=== PATIENT | male | born 1980 | race Caucasian/White ===

== ENCOUNTER 2017-06-02 00:56 | Inpatient (IN) | payer SELFPAY ==
[2017-06-01 04:55] VITALS: O2SAT 100
[~2017-06-02] VITALS: Ht 182.9 cm; Wt 104.0 kg
[2017-06-02] VITALS (16 sets, daily range): BP systolic 102–137; BP diastolic 64–76; PULSE 67–79; RESP 12–21; TEMP 98.4–99.7; O2SAT 90–100
[2017-06-02] MEDS ORDERED: IOHEXOL 350 MG/ML 10 ML VIAL (for RAD DIAG) IVCONTRAST ONE (01:15)
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
[2017-06-02] MEDS ORDERED: HEPARIN SODIUM - SQ 10,000 UNITS/ML VIAL ONE (01:24)
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
[2017-06-02 01:27] LABS: AUTOMATED NEUTROPHIL # 2.4 TH/MM3 (1.8-7.7); BASOPHIL % 0.3 % (0.0-2.0); EOSINOPHIL # 0.1 TH/MM3 (0-0.4); EOSINOPHIL % 1.2 % (0.0-4.0); HEMATOCRIT 42.3 % (39.0-51.0); LYMPH % 64.1 % (9.0-44.0); LYMPHOCYTE # 6.3 TH/MM3 (1.0-4.8); MEAN CELL VOLUME 89.3 FL (80.0-100.0); MEAN CORPUSCULAR HEMOGLOBIN 31.6 PG (27.0-34.0); MEAN CORPUSCULAR HGB CONC 35.4 % (32.0-36.0); MEAN PLATELET VOLUME 8.5 FL (7.0-11.0); MONO % 9.9 % (0.0-8.0); NEUT % 24.5 % (16.0-70.0); PLATELET COUNT 182 TH/MM3 (150-450); RED BLOOD COUNT 4.74 MIL/MM3 (4.50-5.90); RED CELL DISTRIBUTION WIDTH 14.2 % (11.6-17.2); WHITE BLOOD COUNT 9.7 TH/MM3 (4.0-11.0)
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
[2017-06-02] MEDS ORDERED: metroNIDAZOLE 500 MG INJ 100 ML IV ONE (01:32)
[2017-06-02 01:37] LABS: INTERNATIONAL NORMALIZED RATIO 1.1 RATIO; PROTHROMBIN TIME - PATIENT 10.7 SEC (9.8-11.6)
[2017-06-02 02:25] LABS: LYMPHOCYTES 68 % (9-44); MONOCYTES 6 % (0-8); NEUTROPHIL # MANUAL DIFF 2.4 TH/MM3 (1.8-7.7); POLYS (SEG NEUTROPHILS) 25 % (16-70)
[2017-06-02] MEDS ORDERED: DEXMEDETOMIDINE HCL 200 MCG/2 ML VIAL ONE (03:44)
[2017-06-02] MEDS ORDERED: MISCELLANEOUS NURSING INFORMATION XX SCH ×2 (03:45→05:45)
[2017-06-02] MEDS ORDERED: PROPOFOL 1000 MG/100 ML INJ 100 ML IV PRN ×2 (03:45→08:00)
[2017-06-02] MEDS ORDERED: CHLORHEXIDINE GLUCONATE 2 % 1 PACK (2 CLOTHS) TOP PRN ×2 (03:45→05:45)
[2017-06-02] MEDS ORDERED: ONDANSETRON HCL 4 MG/2 ML VIAL IV PUSH PRN (03:45)
[2017-06-02] MEDS ORDERED: NEED HT & WT SCH (03:45)
[2017-06-02] MEDS ORDERED: fentaNYL DRIP 250 ML IV PRN ×2 (03:45→08:00)
[2017-06-02] MEDS ORDERED: PROPOFOL 1000 MG/100 ML INJ 100 ML ONE ×2 (03:45→05:50)
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
[2017-06-02] MEDS: SODIUM CHLOR 0.9% 1000 ML INJ 1,000 ML IV SCH ×3 (03:50→20:58)
[2017-06-02] MEDS ORDERED: CHLORHEXIDINE GLUCONATE 2 % 1 PACK (2 CLOTHS) TOP SCH (04:00)
[2017-06-02] MEDS: ceFAZolin 2 GM PREMIX 50 ML IV SCH ×4 (04:00→20:57)
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
[2017-06-02] MEDS ORDERED: *morphine SULFATE 8 MG/ML PERIprocedure ONLY ONE (04:11)
[2017-06-02] MEDS ORDERED: METOPROLOL TARTRATE 5 MG/5 ML VIAL ONE (04:12)
[2017-06-02] MEDS ORDERED: HYDROmorphone HCL PF 2 MG/ML VIAL IV SCH (04:30)
[2017-06-02] MEDS ORDERED: DO NOT ADM ANY ANTICOAGULANT DRUGS PRN (04:45)
[2017-06-02 05:14] LABS: AUTOMATED NEUTROPHIL # 4.9 TH/MM3 (1.8-7.7); BASOPHIL % 0.3 % (0.0-2.0); EOSINOPHIL % 0.6 % (0.0-4.0); HEMATOCRIT 43.4 % (39.0-51.0); HEMOGLOBIN 14.8 GM/DL (13.0-17.0); LYMPH % 14.6 % (9.0-44.0); LYMPHOCYTE # 0.9 TH/MM3 (1.0-4.8); MEAN CELL VOLUME 90.7 FL (80.0-100.0); MEAN CORPUSCULAR HGB CONC 34.1 % (32.0-36.0); MONO % 8.4 % (0.0-8.0); MONOCYTE # 0.5 TH/MM3 (0-0.9); NEUT % 76.1 % (16.0-70.0); PLATELET COUNT 188 TH/MM3 (150-450); RED BLOOD COUNT 4.79 MIL/MM3 (4.50-5.90); RED CELL DISTRIBUTION WIDTH 14.6 % (11.6-17.2); WHITE BLOOD COUNT 6.4 TH/MM3 (4.0-11.0)
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
[2017-06-02 05:35] LABS: BICARBONATE 25.9 MEQ/L (21.0-32.0); CALCIUM 7.3 MG/DL (8.5-10.1); CREATININE 0.84 MG/DL (0.60-1.30)
--- NOTE | 2017-06-02 05:43 | RADRPT ---
EXAM DATE/TIME: 06/02/2017 05:21 [place] COMPARISON: CHEST SINGLE AP, June 02, 2017, 0:58. CT ABDOMEN & PELVIS W CONTRAST, June 02, 2017, 1:09. INDICATIONS : Short of breath. MEDICAL HISTORY : None. SURGICAL HISTORY : None. ENCOUNTER: Initial ACUITY: 1 day PAIN SCORE: 0/10 LOCATION: Bilateral chest FINDINGS: No infiltrate, effusion or pneumothorax. Heart size within normal limits. Endotracheal tube tip is approximately 5 cm above the jamaal. Nasogastric tube with tip in the stomac h. CONCLUSION: Lungs remain clear. Appropriate position of the endotracheal tube and nasogastric tube. Ramses De Los Santos MD on June 02, 2017 at 5:40 Board Certified Radiologist. This report was verified electronically.
[2017-06-02] MEDS ORDERED: ACETAMINOPHEN 1000 MG/100 ML 100 ML IV PRN ×2 (05:45→18:00)
[2017-06-02] MEDS ORDERED: SODIUM CHLORIDE 0.9% FLUSH 10 ML FLUSH IV FLUSH PRN (05:45)
[2017-06-02] MEDS ORDERED: RESP: ALBUTEROL 2.5 MG/3 ML NEB (PRN) INH (05:45)
[2017-06-02 05:51] LABS: CALCIUM-PROTEIN CORRECTED 7.8 MG/DL (8.5-10.1); TOTAL PROTEIN 6.1 GM/DL (6.4-8.2)
[2017-06-02] MEDS: ARTIFICIAL TEARS OPTH SOLN 15 ML BTL EACH EYE SCH ×2 (07:53→11:23)
[2017-06-02] MEDS: SODIUM CHLORIDE 0.9% FLUSH 10 ML FLUSH IV FLUSH SCH ×2 (07:53→20:58)
[2017-06-02] MEDS ORDERED: CHLORHEXIDINE 0.12% (ORAL KIT) 15 ML CUP MT SCH (08:00)
[2017-06-02] MEDS ORDERED: FAMOTIDINE 20 MG/2 ML VIAL IV PUSH SCH (09:00)
[2017-06-02] MEDS ORDERED: HYDROmorphone HCL PCA 6 MG/30 ML IV SCH (10:45)
[2017-06-02] MEDS ORDERED: NALOXONE HCL 0.4 MG/ML AMP IV PUSH PRN (10:45)
[2017-06-02] MEDS ORDERED: ePHEDrine/NS 25 MG/5 ML SYRINGE IV ONE (12:00)
[2017-06-02] MEDS ORDERED: NORMOSOL R INJ 2,000 ML IV ONE (12:00)
[2017-06-02] MEDS ORDERED: LACTATED RINGER'S 1000 ML INJ 1,000 ML IV ONE (12:00)
[2017-06-02] MEDS ORDERED: SUCCINYLCHOLINE CHLORIDE 200 MG/10 ML VIAL IV ONE (12:00)
[2017-06-02] MEDS ORDERED: ROCURONIUM INJ 50 MG/5 ML SYRINGE IV PUSH ONE (12:00)
[2017-06-02] MEDS ORDERED: VECURONIUM BROMIDE 20 MG VIAL IV ONE (12:00)
[2017-06-02] MEDS ORDERED: PROPOFOL 200 MG/20 ML AMP IV ONE (12:00)
[2017-06-02] MEDS: PCA - TOTAL MG DILAUDID DELIVERED PER SHIFT OTHER SCH ×2 (14:00→22:00)
[2017-06-02] MEDS: HYDROmorphone HCL PF 2 MG/ML VIAL IV PUSH PRN ×2 (17:55→20:58)
[2017-06-02] MEDS: HYDROmorphone HCL PCA 6 MG/30 ML IV SCH ×2 (18:18→22:20)
[2017-06-03] VITALS (8 sets, daily range): BP systolic 123–144; BP diastolic 67–91; PULSE 72–88; RESP 18–22; TEMP 97.2–98; O2SAT 90–96
[2017-06-03] MEDS: HYDROmorphone HCL PF 2 MG/ML VIAL IV PUSH PRN ×8 (00:58→23:12)
[2017-06-03] MEDS: HYDROmorphone HCL PCA 6 MG/30 ML IV SCH ×2 (02:47→09:28)
[2017-06-03] MEDS ORDERED: CHLORHEXIDINE GLUCONATE 2 % 1 PACK (2 CLOTHS) TOP SCH (04:00)
[2017-06-03] MEDS: SODIUM CHLOR 0.9% 1000 ML INJ 1,000 ML IV SCH ×2 (04:24→12:23)
[2017-06-03] MEDS: PCA - TOTAL MG DILAUDID DELIVERED PER SHIFT OTHER SCH (06:00)
[2017-06-03 06:31] LABS: AUTOMATED NEUTROPHIL # 7.9 TH/MM3 (1.8-7.7); BASOPHIL % 0.1 % (0.0-2.0); EOSINOPHIL % 0.1 % (0.0-4.0); HEMATOCRIT 39.1 % (39.0-51.0); HEMOGLOBIN 13.4 GM/DL (13.0-17.0); INTERNATIONAL NORMALIZED RATIO 1.1 RATIO; LYMPH % 11.8 % (9.0-44.0); LYMPHOCYTE # 1.2 TH/MM3 (1.0-4.8); MEAN CELL VOLUME 91.6 FL (80.0-100.0); MEAN CORPUSCULAR HEMOGLOBIN 31.4 PG (27.0-34.0); MEAN CORPUSCULAR HGB CONC 34.3 % (32.0-36.0); MEAN PLATELET VOLUME 9.3 FL (7.0-11.0); MONO % 11.1 % (0.0-8.0); MONOCYTE # 1.1 TH/MM3 (0-0.9); NEUT % 76.9 % (16.0-70.0); PLATELET COUNT 146 TH/MM3 (150-450); PROTHROMBIN TIME - PATIENT 11.6 SEC (9.8-11.6); RED BLOOD COUNT 4.27 MIL/MM3 (4.50-5.90); RED CELL DISTRIBUTION WIDTH 14.4 % (11.6-17.2); WHITE BLOOD COUNT 10.3 TH/MM3 (4.0-11.0)
[2017-06-03 06:45] LABS: BICARBONATE 26.7 MEQ/L (21.0-32.0); CALCIUM 7.6 MG/DL (8.5-10.1); CREATININE 0.64 MG/DL (0.60-1.30)
[2017-06-03] MEDS: SODIUM CHLORIDE 0.9% FLUSH 10 ML FLUSH IV FLUSH SCH ×2 (09:27→20:12)
[2017-06-03] MEDS: ENOXAPARIN SODIUM 30 MG/0.3 ML SYRINGE SQ SCH ×2 (11:05→22:51)
[2017-06-03] MEDS: METHADONE HCL 10 MG/10 ML ORAL SOLUTION PO SCH (11:52)
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
[2017-06-04] VITALS (7 sets, daily range): BP systolic 120–141; BP diastolic 67–90; PULSE 66–86; RESP 18–20; TEMP 97.6–98.9; O2SAT 91–96
[2017-06-04] MEDS: HYDROmorphone HCL PF 2 MG/ML VIAL IV PUSH PRN ×7 (02:26→21:57)
[2017-06-04] MEDS: SODIUM CHLOR 0.9% 1000 ML INJ 1,000 ML IV SCH ×2 (02:26→11:32)
[2017-06-04 04:08] LABS: BASOPHIL % 0.2 % (0.0-2.0); EOSINOPHIL % 0.4 % (0.0-4.0); HEMATOCRIT 36.4 % (39.0-51.0); HEMOGLOBIN 12.4 GM/DL (13.0-17.0); LYMPH % 13.6 % (9.0-44.0); LYMPHOCYTE # 1.2 TH/MM3 (1.0-4.8); MEAN CELL VOLUME 91.8 FL (80.0-100.0); MEAN CORPUSCULAR HEMOGLOBIN 31.2 PG (27.0-34.0); MEAN CORPUSCULAR HGB CONC 33.9 % (32.0-36.0); MEAN PLATELET VOLUME 9.2 FL (7.0-11.0); MONO % 9.2 % (0.0-8.0); MONOCYTE # 0.8 TH/MM3 (0-0.9); NEUT % 76.6 % (16.0-70.0); PLATELET COUNT 139 TH/MM3 (150-450); RED BLOOD COUNT 3.97 MIL/MM3 (4.50-5.90); RED CELL DISTRIBUTION WIDTH 13.8 % (11.6-17.2); WHITE BLOOD COUNT 9.1 TH/MM3 (4.0-11.0)
[2017-06-04 04:30] LABS: BICARBONATE 26.7 MEQ/L (21.0-32.0); CREATININE 0.62 MG/DL (0.60-1.30)
[2017-06-04] MEDS: SODIUM CHLORIDE 0.9% FLUSH 10 ML FLUSH IV FLUSH SCH ×2 (09:00→18:50)
[2017-06-04] MEDS: ENOXAPARIN SODIUM 30 MG/0.3 ML SYRINGE SQ SCH ×2 (09:13→21:56)
[2017-06-04] MEDS: METHADONE HCL 10 MG/10 ML ORAL SOLUTION PO SCH (09:16)
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
[2017-06-04] MEDS: GABAPENTIN 300 MG CAP PO SCH ×2 (13:51→21:56)
[2017-06-05] VITALS (7 sets, daily range): BP systolic 112–140; BP diastolic 70–89; PULSE 68–80; RESP 17–20; TEMP 98–98.8; O2SAT 92–95
[2017-06-05] MEDS: HYDROmorphone HCL PF 2 MG/ML VIAL IV PUSH PRN ×7 (01:08→23:29)
[2017-06-05 06:08] LABS: HEMATOCRIT 34.2 % (39.0-51.0); HEMOGLOBIN 11.9 GM/DL (13.0-17.0)
[2017-06-05] MEDS: ENOXAPARIN SODIUM 30 MG/0.3 ML SYRINGE SQ SCH ×2 (08:30→20:46)
[2017-06-05] MEDS: GABAPENTIN 300 MG CAP PO SCH ×2 (08:30→20:46)
[2017-06-05] MEDS: SODIUM CHLORIDE 0.9% FLUSH 10 ML FLUSH IV FLUSH SCH ×2 (09:00→20:46)
[2017-06-05] MEDS: METHADONE HCL 10 MG/10 ML ORAL SOLUTION PO SCH (10:44)
[2017-06-05] MEDS ORDERED: WALKER WHEELS/F1 MIS (16:45)
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
[2017-06-06] VITALS (7 sets, daily range): BP systolic 101–148; BP diastolic 61–84; PULSE 62–72; RESP 16–20; TEMP 97.6–98.3; O2SAT 93–95
[2017-06-06] MEDS: HYDROmorphone HCL PF 2 MG/ML VIAL IV PUSH PRN ×7 (02:39→21:03)
[2017-06-06] MEDS: SODIUM CHLORIDE 0.9% FLUSH 10 ML FLUSH IV FLUSH SCH ×2 (09:00→21:04)
[2017-06-06] MEDS: GABAPENTIN 300 MG CAP PO SCH ×2 (09:03→21:03)
[2017-06-06] MEDS: METHADONE HCL 10 MG/10 ML ORAL SOLUTION PO SCH (09:04)
[2017-06-06] MEDS: ENOXAPARIN SODIUM 30 MG/0.3 ML SYRINGE SQ SCH ×2 (09:04→21:04)
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
[2017-06-07] VITALS: BP 160/92; PULSE 74; RESP 18; TEMP 97.8; O2SAT 96
[2017-06-07] MEDS: HYDROmorphone HCL PF 2 MG/ML VIAL IV PUSH PRN ×5 (00:05→12:56)
[2017-06-07 04:00] VITALS: BP 119/76; PULSE 59; RESP 16; TEMP 97.8; O2SAT 93
[2017-06-07] MEDS: SODIUM CHLORIDE 0.9% FLUSH 10 ML FLUSH IV FLUSH SCH (07:25)
[2017-06-07] MEDS: GABAPENTIN 300 MG CAP PO SCH (07:25)
[2017-06-07] MEDS: METHADONE HCL 10 MG/10 ML ORAL SOLUTION PO SCH (07:25)
[2017-06-07] MEDS: ENOXAPARIN SODIUM 30 MG/0.3 ML SYRINGE SQ SCH (08:10)
[2017-06-07 08:38] VITALS: BP 127/84; PULSE 63; RESP 19; TEMP 98.6; O2SAT 96
[2017-06-07 12:58] VITALS: BP 144/88; PULSE 78; RESP 20; TEMP 98.8; O2SAT 96
[2017-06-07 13:26] VITALS: RESP 16
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
== END 2017-06-07 15:10 | disposition home or self-care (01) | DRG 329 ==
LOC: NEPI 00:56 → NEDA 01:24 → EEVIPCON 01:24 → UNDOADMIN 01:24 → EDBD 01:24 → HPAC 04:39 → NEDA 04:39 → N03B 04:39 → HPAC 04:40 → N03B 05:59 → N05A 06-03 17:44
PROVIDERS: ADMIT Surgery Trauma Surgery; ATTEND Surgery Trauma Surgery
PROC: 0WQF0ZZ Repair Abdominal Wall, Open Approach (ICD-10-PCS; 2017-06-02)
PROC: 0WQF0ZZ Repair Abdominal Wall, Open Approach (ICD-10-PCS; 2017-06-02)
PROC: 0DBA0ZZ Excision of Jejunum, Open Approach (ICD-10-PCS; principal; 2017-06-02 01:25)
DX: S36.438A Laceration of other part of small intestine, initial encounter (principal); S31.619A Laceration without foreign body of abdominal wall, unspecified quadrant with penetration into peritoneal cavity, initial encounter; I95.9 Hypotension, unspecified; S36.892A Contusion of other intra-abdominal organs, initial encounter; K43.9 Ventral hernia without obstruction or gangrene; F17.210 Nicotine dependence, cigarettes, uncomplicated; F11.10 Opioid abuse, uncomplicated; W26.0XXA Contact with knife, initial encounter
CPT/HCPCS: 31500; 71045; 74177; 80048; 80307; 82805; 84155; 85007; 85014; 85018; 85025; 85027; 85610; 85730; 86850; 86900; 86901; 86920; 87641; 88307; 94002; 94003; 94150; J0131; J0330; J0690; J1170; J1644; J1650; J2270; J3010; J7030; J7120; Q9967

== ENCOUNTER 2017-06-12 20:31 | Emergency (ER) | payer SELFPAY ==
[~2017-06-12] VITALS: Ht 167.6 cm; Wt 95.0 kg
[~2017-06-12 20:31] MED LIST: WALKER WHEELS/F1 MIS
[2017-06-12 21:14] VITALS: BP 139/68; PULSE 97; RESP 20; TEMP 99.2; O2SAT 97
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
[2017-06-12] MEDS ORDERED: SODIUM CHLOR 0.9% 1000 ML INJ 1,000 ML IV SCH (21:38)
[2017-06-12] MEDS ORDERED: ONDANSETRON HCL 4 MG/2 ML VIAL IVP ONE (21:45)
[2017-06-12] MEDS ORDERED: MORPHINE SULFATE 4 MG/ML INJ IV PUSH ONE (21:45)
[2017-06-12] MEDS ORDERED: SODIUM CHLORIDE 0.9% FLUSH 10 ML FLUSH IV FLUSH PRN (21:45)
[2017-06-12] MEDS ORDERED: DIATRIZOATE MEGLUM/DIATRIZOATE SOD 9 ML CUP ONE (22:11)
[2017-06-12 22:27] LABS: AUTOMATED NEUTROPHIL # 4.3 TH/MM3 (1.8-7.7); BASOPHIL % 0.5 % (0.0-2.0); EOSINOPHIL # 0.1 TH/MM3 (0-0.4); EOSINOPHIL % 1.7 % (0.0-4.0); HEMATOCRIT 40.9 % (39.0-51.0); LYMPH % 27.5 % (9.0-44.0); MEAN CELL VOLUME 89.2 FL (80.0-100.0); MEAN CORPUSCULAR HEMOGLOBIN 30.5 PG (27.0-34.0); MEAN CORPUSCULAR HGB CONC 34.2 % (32.0-36.0); MEAN PLATELET VOLUME 8.2 FL (7.0-11.0); MONO % 11.5 % (0.0-8.0); MONOCYTE # 0.8 TH/MM3 (0-0.9); NEUT % 58.8 % (16.0-70.0); PLATELET COUNT 273 TH/MM3 (150-450); RED BLOOD COUNT 4.58 MIL/MM3 (4.50-5.90); RED CELL DISTRIBUTION WIDTH 13.4 % (11.6-17.2); WHITE BLOOD COUNT 7.3 TH/MM3 (4.0-11.0)
[2017-06-12 22:40] LABS: ALBUMIN 2.9 GM/DL (3.4-5.0); AST (GOT) 91 U/L (15-37); BLOOD UREA NITROGEN 14 MG/DL (7-18); CALCIUM 8.6 MG/DL (8.5-10.1); CHLORIDE 97 MEQ/L (98-107); CREATININE 1.01 MG/DL (0.60-1.30); GLOMERULAR FILTRATION RATE 83 ML/MIN (>89); GLUCOSE,RANDOM 97 MG/DL (74-106); SODIUM (NA) 134 MEQ/L (136-145)
[2017-06-12 22:44] LABS: ALKALINE PHOSPHATASE 64 U/L (45-117); ALT (GPT) 100 U/L (12-78); TOTAL BILIRUBIN ADULT 0.3 MG/DL (0.2-1.0); TOTAL PROTEIN 7.8 GM/DL (6.4-8.2)
[2017-06-12 23:00] LABS: INTERNATIONAL NORMALIZED RATIO 1.1 RATIO
[2017-06-12] MEDS ORDERED: IOHEXOL 350 MG/ML 10 ML VIAL (for RAD DIAG) IVCONTRAST ONE (23:46)
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
[2017-06-13] MEDS ORDERED: NORC5TAB PO (01:05)
== END 2017-06-13 01:42 | disposition home or self-care (01) ==
LOC: NEPD 20:31
DX: R10.31 Right lower quadrant pain (principal); S31.11 Laceration without foreign body of abdominal wall without penetration into peritoneal cavity
CPT/HCPCS: 74177; 80053; 83690; 85025; 85610; 85730; 96361; 96374; 96375; 99284; J2270; J2405; J7030; Q9963; Q9967